=== PATIENT | male | born 1980 | race Caucasian/White ===

== ENCOUNTER 2018-03-18 17:06 | Emergency (ER) | payer OTHER ==
--- NOTE | 2018-03-18 17:29 | ED Physician Documentation ---
PD HPI HEADACHE - Stated complaint Stated Complaint: SILVA/BK STIFFNESS - Chief complaint Chief Complaint: Fever - History obtained from History obtained from: Patient - History of Present Illness Timing - onset: Yesterday Timing - onset during: Light activity Timing - duration: Days (1) Timing - details: Gradual onset, Still present, Constant Worst headache ever?: No: Worst headache ever? Location: Global Quality: Aching, Tightness. No: Thunderclap Associated symptoms: Fever, Nausea. No: Weakness, Numbness Improved by: Rest, Meds (somewhat improved with Tylenol.). No: Dark room Worsened by: No: Light, Noise Contributing factors: Recent illness (started with fever and congestion yesterday, feeling like cold/flu.). No: Hypertension, Trauma Similar symptoms before: Diagnosis (he had viral meningitis without residual problems (no headaches nor migraines) about 5 years ago. He says the headache feels somewhat like that only milder thus far.) Review of Systems Constitutional: reports: Fever (last night), Chills, Myalgias Nose: reports: Congestion. denies: Rhinorrhea / runny nose Throat: denies: Sore throat Respiratory: denies: Cough GI: reports: Nausea. denies: Vomiting, Diarrhea Skin: denies: Rash, Lesions Neurologic: denies: Generalized weakness, Focal weakness, Numbness, Near syncope PD PAST MEDICAL HISTORY - Past Medical History Past Medical History: Yes Neuro: Other Other Past Medical History: viral menigitis - Past Surgical History Past Surgical History: Yes Ortho: Other - Present Medications Home Medications: Ambulatory Orders Medication Instructions Recorded Confirmed Dexamethasone [Decadron] 4 mg PO DAILY #5 tablet 03/18/18 HYDROcod/ACETAM 5/325 [Cable 5/325] 1 tab PO Q6H PRN #15 tablet 03/18/18 Naproxen 375 mg PO BID #20 tablet 03/18/18 Ondansetron HCl [Zofran] 4 mg PO Q6H PRN #20 tablet 03/18/18 - Allergies Allergies/Adverse Reactions: Allergies Allergy/AdvReac Type Severity Reaction Status Date / Time No Known Drug Allergies Allergy Verified 03/18/18 17:17 - Social History Does the pt smoke?: Yes Smoking Status: Current some day smoker Does the pt drink ETOH?: Yes Does the pt have substance abuse?: No - Immunizations Immunizations are current?: Yes PD ED PE NORMAL - Vitals Vital signs reviewed: Yes - General General: Alert and oriented X 3, No acute distress, Well developed/nourished - HEENT HEENT: PERRL (not light sensitive), Moist mucous membranes, Pharynx benign - Neck Neck: Supple, no meningeal sign, No adenopathy - Cardiac Cardiac: RRR, No murmur - Respiratory Respiratory: Clear bilaterally - Abdomen Abdomen: Soft, Non tender - Derm Derm: Normal color, Warm and dry, No rash - Neuro Neuro: Alert and oriented X 3, No motor deficit, Normal speech Results - Vitals Vitals: Oxygen O2 Source Room air - Labs Labs: Laboratory Tests 03/18/18 03/18/18 03/18/18 17:53 18:26 18:26 WBC 10.1 RBC 4.86 Hgb 15.0 Hct 42.7 MCV 87.7 MCH 30.9 MCHC 35.2 RDW 12.5 Plt Count 332 MPV 7.9 Neut # (Auto) 5.5 Lymph # (Auto) 3.5 Frederick # (Auto) 0.6 Eos # (Auto) 0.4 Baso # (Auto) 0.1 Absolute Nucleated RBC 0.01 Nucleated RBC % 0.1 Sodium 136 Potassium 4.0 Chloride 99 L Carbon Dioxide 27 Anion Gap 10.0 BUN 17 Creatinine 0.9 Estimated GFR (MDRD) 96 Glucose 88 Lactic Acid Calcium 9.5 Total Bilirubin 0.7 AST 42 ALT 56 Alkaline Phosphatase 55 Total Protein 7.7 Albumin 4.7 Globulin 3.0 Albumin/Globulin Ratio 1.6 Lipase 44 Influenza A (Rapid) Negative Influenza B (Rapid) Negative 03/18/18 18:26 WBC RBC Hgb Hct MCV MCH MCHC RDW Plt Count MPV Neut # (Auto) Lymph # (Auto) Frederick # (Auto) Eos # (Auto) Baso # (Auto) Absolute Nucleated RBC Nucleated RBC % Sodium Potassium Chloride Carbon Dioxide Anion Gap BUN Creatinine Estimated GFR (MDRD) Glucose Lactic Acid 0.9 Calcium Total Bilirubin AST ALT Alkaline Phosphatase Total Protein Albumin Globulin Albumin/Globulin Ratio Lipase Influenza A (Rapid) Influenza B (Rapid) PD MEDICAL DECISION MAKING - ED course Complexity details: reviewed results, re-evaluated patient (he is feeling better with fluids and meds. Still headache but not meningitic. I talked with him about an LP being the only real way to exclude early meningitis. He was quite sure he did not want an LP. At this point, with the mild symptoms, we had shared decision to postpone an LP pending symptom course through the next day or two. ), considered differential (viral illness with triggered headache, or viral illness with migraine, versus early meningitis. ), d/w patient - Sepsis Event Vital Signs: Oxygen O2 Source Room air Departure - Departure Disposition: 01 Home, Self Care Clinical Impression: Viral syndrome Headache Qualifiers: Headache type: unspecified Headache chronicity pattern: acute headache Intractability: not intractable Qualified Code(s): R51 - Headache Condition: Stable Record reviewed to determine appropriate education?: Yes Instructions: ED Cephalgia Unspecified, ED Viral Syndrome Follow-Up: Tyson Parsons ARNP [Primary Care Provider] - Prescriptions: Dexamethasone [Decadron] 4 mg PO DAILY #5 tablet HYDROcod/ACETAM 5/325 [Cable 5/325] 1 tab PO Q6H PRN #15 tablet PRN Reason: Pain Naproxen 375 mg PO BID #20 tablet Ondansetron HCl [Zofran] 4 mg PO Q6H PRN #20 tablet PRN Reason: Nausea / Vomiting Comments: Presume this is a viral illness as you do not appear to sick. However the most certain way of distinguishing a viral illness versus other types of meningitis would be a spinal tap. I understand your reluctance to want to do that at this time. If you have worsening symptoms or persistent symptoms then return to the ER for further treatments. Meanwhile drink lots of fluids, rest at home, use some naproxen anti-inflammatory and add Tylenol or hydrocodone if needed for headache. Decadron steroid daily for the next several days. Ondansetron if needed for nausea. Recheck with the clinic in the next 1-2 days and again return to the ER sooner if worsening. Discharge Date/Time: 03/18/18 20:02
[2018-03-18] MEDS ORDERED: ONDANSETRON 4 MG/2 ML VIAL IVP STA (17:56)
[2018-03-18] MEDS ORDERED: KETOROLAC 60 MG/2 ML VIAL IVP STA (17:56)
[2018-03-18] MEDS ORDERED: SODIUM CHLORIDE 0.9% 1,000 ML IV ONE ×2 (17:56→17:57)
[2018-03-18] MEDS ORDERED: ACETAMINOPHEN 1,000 MG/100 ML 100 ML IV STA (17:57)
[2018-03-18 18:33] LABS: BASOPHILS # (AUTO) 0.1 10^3/uL (0.0-0.1); BASOPHILS % (AUTO) 0.8 %; EOSINOPHILS # (AUTO) 0.4 10^3/uL (0.0-0.7); LYMPHOCYTES # (AUTO) 3.5 10^3/uL (1.5-3.5); LYMPHOCYTES % (AUTO) 34.3 %; MEAN CORPUSCULAR HEMOGLOBIN 30.9 pg (27.0-31.0); MEAN CORPUSCULAR HGB CONC 35.2 g/dL (32.0-36.0); MEAN CORPUSCULAR VOLUME 87.7 fL (80.0-94.0); MEAN PLATELET VOLUME 7.9 fL (7.4-11.4); MONOCYTES # (AUTO) 0.6 10^3/uL (0.0-1.0); MONOCYTES % (AUTO) 6.2 %; NEUTROPHILS # (AUTO) 5.5 10^3/uL (1.5-6.6); NEUTROPHILS % (AUTO) 54.7 %; PLT - PLATELET COUNT 332 10^3/uL (130-450); RED BLOOD COUNT 4.86 10^6/uL (4.70-6.10); RED CELL DISTRIBUTION WIDTH 12.5 % (12.0-15.0); WHITE BLOOD COUNT 10.1 x10^3/uL (4.8-10.8)
[2018-03-18 18:53] LABS: ALBUMIN 4.7 g/dL (3.2-5.5); ALBUMIN/GLOBULIN RATIO 1.6 (1.0-2.2); BILIRUBIN,TOTAL 0.7 mg/dL (0.2-1.0); CALCIUM 9.5 mg/dL (8.5-10.3); CREATININE 0.9 mg/dL (0.6-1.2); TOTAL PROTEIN 7.7 g/dL (6.7-8.2)
[2018-03-18 20:03] VITALS: BP 113/72
== END 2018-03-18 20:02 | disposition home or self-care (01) ==
LOC: ED 17:06
DX: B34.9 Viral infection, unspecified (principal); R51 Headache; R11.0 Nausea; F17.200 Nicotine dependence, unspecified, uncomplicated
CPT/HCPCS: 36415; 80053; 83605; 83690; 85025; 87275; 87276; 96361; 96365; 96374; 96375; 99283; 99284; J0131

== ENCOUNTER 2018-12-04 08:41 | Outpatient (CLI) | payer OTHER ==
--- NOTE | 2018-12-04 11:02 | MRI Report ---
Reason: OTHER AMNESIA,HEADACHE Procedure Date: 12/04/2018 Accession Number: [id number] / [id number] Procedure: MRI - Brain W/O CPT Code: FULL RESULT: EXAM: MRI BRAIN WITHOUT CONTRAST EXAM DATE: 12/04/2018 10:01 AM. CLINICAL HISTORY: Increasingly severe and intense headaches. Reported history of amnesia also. COMPARISON: None. TECHNIQUE: Multiplanar, multisequence T1-weighted and fluid-sensitive MR sequences of the brain were performed. Sequences optimized for routine evaluation. Other: None. IV Contrast: None. FINDINGS: Brain Volume: Normal for age. Parenchyma/Dura: No mass, acute infarct or hemorrhage. No white matter lesions identified. Ventricles/Cisterns: No hydrocephalus. No abnormal extra-axial fluid collection or hemorrhage. Orbits: Symmetric and unremarkable. Sella Turcica: The pituitary gland, cavernous sinuses, suprasellar cistern and optic chiasm are unremarkable. IAC: Symmetric and unremarkable. Vasculature: Normal signal flow void is seen in the major arterial structures at the skull base. Sinuses: Mild to moderate pansinus mucosal thickening especially maxillary ethmoid and right frontal. Bones: No focal pathologic appearing marrow signal changes. Other: None. IMPRESSION: 1. No acute intracranial normality. Normal appearance of the brain. 2. Paranasal sinus mucosal thickening suggests pansinusitis. RADIA
== END 2018-12-04 08:42 | disposition home or self-care (01) ==
LOC: DI 08:41
PROVIDERS: ATTEND Nurse Practitioner Family
DX: R41.3 Other amnesia (principal); R51 Headache
CPT/HCPCS: 70551